=== PATIENT | female | born 1985 | race African-American/Black ===

== ENCOUNTER 2016-08-01 10:20 | Emergency (ER) | payer MEDICAID ==
[~2016-08-01] VITALS: Ht 167.6 cm; Wt 97.5 kg
[2016-08-01 10:27] VITALS: BP 119/71; PULSE 86; RESP 16; TEMP 97.3; O2SAT 98
--- NOTE | 2016-08-01 10:37 | NUR ---
Patient to ER bed 2 to gown for evaluation. Side rails up. Report given to Michael SWAIN.
--- NOTE | 2016-08-01 10:38 | NUR ---
ER at bedside examining patient.
--- NOTE | 2016-08-01 10:41 | NUR ---
Pt presents to Ed c/o bilateral eye irrigation s/p dinner last evening. Pt reports scratchiness to eyes while blinking and exudate this AM.
--- NOTE | 2016-08-01 10:55 | NUR ---
eye exam done by
[2016-08-01 11:25] VITALS: BP 119/71; PULSE 86; RESP 16; TEMP 97.3; O2SAT 98
--- NOTE | 2016-08-01 11:25 | NUR ---
Patient given written and verbal discharge instructions and verbalizes understanding. ER MD discussed with patient the results and treatment provided. Given copies of tests performed in ER. Patient in stable condition. ID arm band removed. IV catheter removed intact and dressing applied, no active bleeding. Rx of ocufox,clindamycin given. Patient educated on pain management and to follow up with PMD. Pain Scale 2. Opportunity for questions provided and answered.
== END 2016-08-01 11:25 | disposition home or self-care (01) ==
LOC: SED 10:20
DX: B30.9 Viral conjunctivitis, unspecified (principal); J45.909 Unspecified asthma, uncomplicated; Z88.0 Allergy status to penicillin; Z88.1 Allergy status to other antibiotic agents; Z91.018 Allergy to other foods
CPT/HCPCS: 99283

== ENCOUNTER 2016-08-02 17:51 | Emergency (ER) | payer MEDICAID ==
[~2016-08-02] VITALS: Ht 167.6 cm; Wt 97.5 kg
[2016-08-02 18:00] VITALS: BP_SYST 129
[2016-08-02 19:28] VITALS: BP_SYST 129
== END 2016-08-02 19:28 | disposition home or self-care (01) ==
LOC: SED 17:51
DX: B30.9 Viral conjunctivitis, unspecified (principal); J45.909 Unspecified asthma, uncomplicated; Z88.0 Allergy status to penicillin; Z88.1 Allergy status to other antibiotic agents; Z91.018 Allergy to other foods
CPT/HCPCS: 99283

== ENCOUNTER 2017-01-03 22:01 | Emergency (ER) | payer OTHER ==
[~2017-01-03] VITALS: Ht 167.6 cm; Wt 95.3 kg
[2017-01-03 22:08] VITALS: BP_SYST 157
[2017-01-03] MEDS ORDERED: DIPHENHYDRAMINE HCL 25 MG CAPSULE PO ONE (22:30)
[2017-01-03 22:37] VITALS: BP_SYST 157
== END 2017-01-03 22:31 | disposition home or self-care (01) ==
LOC: SED 22:01
DX: L03.116 Cellulitis of left lower limb (principal); J45.909 Unspecified asthma, uncomplicated; Z86.73 Personal history of transient ischemic attack (TIA), and cerebral infarction without residual deficits; Z88.0 Allergy status to penicillin; Z88.1 Allergy status to other antibiotic agents
CPT/HCPCS: 99283; Q0163

== ENCOUNTER 2017-02-08 08:47 | Emergency (ER) | payer OTHER ==
[~2017-02-08] VITALS: Ht 167.6 cm; Wt 97.5 kg
[2017-02-08 09:00] VITALS: BP_SYST 132
[2017-02-08 09:34] LABS: BASOPHILS % (AUTO) 0.5 % (0.0-2.0); EOSINOPHILS # (AUTO) 0.1 K/uL (0.0-0.4); EOSINOPHILS % (AUTO) 2.3 % (0.0-4.0); HEMATOCRIT 38.7 % (36-48); HEMOGLOBIN 12.4 g/dL (12.0-16.0); LYMPHOCYTES # (AUTO) 1.8 K/uL (1.0-5.5); LYMPHOCYTES % (AUTO) 33.6 % (20.5-51.5); MEAN CORPUSCULAR HEMOGLOBIN 27 pg (27-31); MEAN CORPUSCULAR HGB CONC 32 % (32-36); MEAN CORPUSCULAR VOLUME 84 fL (79.0-98.0); MONOCYTES # (AUTO) 0.2 K/uL (0.0-1.0); MONOCYTES % (AUTO) 4.5 % (1.7-9.3); NEUTROPHILS # (AUTO) 3.3 K/uL (1.8-7.7); NEUTROPHILS % (AUTO) 59.1 % (40.0-70.0); PLATELET COUNT (AUTO) 151 K/uL (130-430); RED BLOOD CELL COUNT(AUTO) 4.63 MIL/uL (4.2-6.2); RED CELL DISTRIBUTION WIDTH 13.7 % (9.0-15.0); WHITE BLOOD COUNT (AUTO) 5.4 K/uL (4.8-10.8)
[2017-02-08 09:41] LABS: PROTHROMBIN TIME 10.8 SECS (9.5-12.5)
[2017-02-08 09:44] LABS: CALCIUM 9.7 mg/dL (8.4-11.0); CREATININE 0.73 mg/dL (0.55-1.30); POTASSIUM 3.7 mmol/L (3.5-5.1)
[2017-02-08] MEDS ORDERED: ACETAMINOPHEN 500 MG TABLET PO ONE (09:45)
[2017-02-08 11:52] VITALS: BP_SYST 124
== END 2017-02-08 11:52 | disposition home or self-care (01) ==
LOC: SED 08:47
DX: O9A.211 Injury, poisoning and certain other consequences of external causes complicating pregnancy, first trimester (principal); M25.511 Pain in right shoulder; R51 Headache; R10.9 Unspecified abdominal pain; J45.909 Unspecified asthma, uncomplicated; Z88.0 Allergy status to penicillin; Z86.73 Personal history of transient ischemic attack (TIA), and cerebral infarction without residual deficits; Z88.1 Allergy status to other antibiotic agents; Z91.018 Allergy to other foods; Z3A.01 Less than 8 weeks gestation of pregnancy; W10.8XXA Fall (on) (from) other stairs and steps, initial encounter; Y93.89 Activity, other specified; Y92.89 Other specified places as the place of occurrence of the external cause; Y99.8 Other external cause status
CPT/HCPCS: 36415; 71020-TC; 72040-TC; 73030; 73060-TC; 73090; 76801; 76817; 80048; 84702-TC; 85025; 85610-TC; 85730-TC; 86900; 86901; 99285

== ENCOUNTER 2017-02-26 19:47 | Emergency (ER) | payer OTHER ==
[~2017-02-26] VITALS: Ht 167.6 cm; Wt 97.5 kg
[2017-02-26 19:47] VITALS: BP_SYST 152
[2017-02-26] MEDS ORDERED: DIPHENHYDRAMINE INJ 50 MG/ML VIAL IM ONE (20:15)
[2017-02-26] MEDS ORDERED: METOCLOPRAMIDE HCL 10 MG TABLET PO ONE (20:30)
[2017-02-26 20:39] VITALS: BP_SYST 129
== END 2017-02-26 21:25 | disposition home or self-care (01) ==
LOC: SED 19:47
DX: O26.891 Other specified pregnancy related conditions, first trimester (principal); L50.9 Urticaria, unspecified; J45.909 Unspecified asthma, uncomplicated; Z3A.12 12 weeks gestation of pregnancy; Z88.0 Allergy status to penicillin; Z86.73 Personal history of transient ischemic attack (TIA), and cerebral infarction without residual deficits; Z88.1 Allergy status to other antibiotic agents; Z91.018 Allergy to other foods
CPT/HCPCS: 76815; 96372; 99285; J1200; J8597

== ENCOUNTER 2017-02-27 23:23 | Emergency (ER) | payer OTHER ==
[~2017-02-27] VITALS: Ht 162.6 cm; Wt 97.5 kg
[2017-02-27 23:23] VITALS: BP_SYST 128
[2017-02-27] MEDS ORDERED: DIPHENHYDRAMINE INJ 50 MG/ML VIAL IM ONE (23:45)
[2017-02-28 00:44] LABS: EOSINOPHILS % (AUTO) 0.6 % (0.0-4.0); MEAN CORPUSCULAR HEMOGLOBIN 27 pg (27-31); MONOCYTES # (AUTO) 0.4 K/uL (0.0-1.0); NEUTROPHILS # (AUTO) 4.3 K/uL (1.8-7.7); PLATELET COUNT (AUTO) 153 K/uL (130-430)
[2017-02-28 00:48] LABS: LYMPHOCYTES # (AUTO) 1.9 K/uL (1.0-5.5)
[2017-02-28 00:51] LABS: BASOPHILS % (AUTO) 0.4 % (0.0-2.0); CALCIUM 9.3 mg/dL (8.4-11.0); CREATININE 0.59 mg/dL (0.55-1.30); HEMATOCRIT 37.3 % (36-48); HEMOGLOBIN 12.1 g/dL (12.0-16.0); LYMPHOCYTES % (AUTO) 29.3 % (20.5-51.5); MEAN CORPUSCULAR HGB CONC 33 % (32-36); MEAN CORPUSCULAR VOLUME 84 fL (79.0-98.0); MONOCYTES % (AUTO) 5.4 % (1.7-9.3); NEUTROPHILS % (AUTO) 64.3 % (40.0-70.0); POTASSIUM 3.3 mmol/L (3.5-5.1); RED BLOOD CELL COUNT(AUTO) 4.46 MIL/uL (4.2-6.2); WHITE BLOOD COUNT (AUTO) 6.6 K/uL (4.8-10.8)
[2017-02-28 00:53] LABS: INR 1.1 (0.8-1.2); PROTHROMBIN TIME 10.7 SECS (9.5-12.5)
[2017-02-28 00:55] LABS: ALBUMIN 3.2 g/dL (3.4-4.8); TOTAL BILIRUBIN 0.3 mg/dL (0.0-1.0)
[2017-02-28 02:11] VITALS: BP_SYST 120
== END 2017-02-28 02:11 | disposition home or self-care (01) ==
LOC: SED 23:23
DX: O26.891 Other specified pregnancy related conditions, first trimester (principal); L50.9 Urticaria, unspecified; Z88.1 Allergy status to other antibiotic agents; Z91.018 Allergy to other foods; Z86.73 Personal history of transient ischemic attack (TIA), and cerebral infarction without residual deficits; Z3A.09 9 weeks gestation of pregnancy
CPT/HCPCS: 36415; 80053; 85025; 85610; 85730; 96372; 99285; J1200

== ENCOUNTER 2017-06-20 09:52 | Emergency (ER) | payer OTHER ==
[~2017-06-20] VITALS: Ht 167.6 cm; Wt 97.1 kg
--- NOTE | 2017-06-20 09:55 | NUR ---
Patient to ER bed 8 to gown for evaluation. Side rails up. Report given to Jose SWAIN.
--- NOTE | 2017-06-20 09:58 | NUR ---
ER at bedside examining patient.
[2017-06-20 09:59] VITALS: BP_SYST 159
--- NOTE | 2017-06-20 10:00 | NUR ---
ER Dr. Saldivar at bedside examining patient.
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
--- NOTE | 2017-06-20 10:29 | NUR ---
Pita dotson in ED - 06/20/17 at 1030 by [email or web address] Radiology at bedside for xray.
--- NOTE | 2017-06-20 10:29 | NUR ---
Patient transported to radiology via wheelchair, accompanied by rad staff.
--- NOTE | 2017-06-20 11:15 | NUR ---
Dr. Saldivar at bedside updating pt on diagnostic results.
--- NOTE | 2017-06-20 11:17 | NUR ---
Soft cervical collar applied to pt. Pt tolerated well & states that it is comfortably placed.
[2017-06-20 11:25] VITALS: BP_SYST 117
--- NOTE | 2017-06-20 11:25 | NUR ---
Patient given written and verbal discharge instructions and verbalizes understanding. ER MD discussed with patient the results and treatment provided. Patient in stable condition. ID arm band removed. No Rx given. Patient educated on pain management and to follow up with PMD. Pain Scale 8/10 but advised to take otc pain medications prn for pain at home, as well as non-pharm pain interventions such as ice and heat pack to neck. Opportunity for questions provided and answered.
== END 2017-06-20 11:25 | disposition home or self-care (01) ==
LOC: SED 09:52
DX: O9A.212 Injury, poisoning and certain other consequences of external causes complicating pregnancy, second trimester (principal); S13.4XXA Sprain of ligaments of cervical spine, initial encounter; J45.909 Unspecified asthma, uncomplicated; Z86.73 Personal history of transient ischemic attack (TIA), and cerebral infarction without residual deficits; Z88.0 Allergy status to penicillin; Z88.8 Allergy status to other drugs, medicaments and biological substances; V89.2XXA Person injured in unspecified motor-vehicle accident, traffic, initial encounter; Y93.89 Activity, other specified; Y92.89 Other specified places as the place of occurrence of the external cause; Y99.8 Other external cause status
CPT/HCPCS: 72040-TC; 99284

== ENCOUNTER 2017-07-23 19:47 | Observation (INO) | payer OTHER ==
[~2017-07-23] VITALS: Ht 167.6 cm; Wt 97.5 kg
== END 2017-07-23 20:40 | disposition home or self-care (01) ==
LOC: SPU 19:47
PROVIDERS: ADMIT Specialist; ATTEND Specialist
DX: O26.893 Other specified pregnancy related conditions, third trimester (principal); N89.8 Other specified noninflammatory disorders of vagina; Z3A.30 30 weeks gestation of pregnancy
CPT/HCPCS: G0378

== ENCOUNTER 2018-10-19 19:26 | Emergency (ER) | payer OTHER ==
[~2018-10-19] VITALS: Ht 167.6 cm; Wt 122.5 kg
[2018-10-19 20:00] VITALS: BP_SYST 150
[2018-10-19] MEDS ORDERED: TOP25 PO (20:05)
[2018-10-19] MEDS ORDERED: LEVE500T9 (20:05)
[2018-10-19] MEDS ORDERED: IMI50 PO (20:06)
[2018-10-19] MEDS ORDERED: NORT10CA PO (20:06)
[2018-10-19] MEDS ORDERED: LIDOCAINE 1% 10 MG/ML, 20 ML MDV INJ ONE (21:45)
[2018-10-19] MEDS ORDERED: IBUPROFEN 800 MG TABLET PO ONE (22:15)
[2018-10-19] MEDS ORDERED: SULFAMETHOXAZOLE/TRIMETHOPR DS 1 TABLET PO ONE (22:15)
[2018-10-19] MEDS ORDERED: MORPHINE 2 MG/ML INJ. SYRINGE IM ONE (23:00)
[2018-10-19] MEDS ORDERED: ONDANSETRON 4 MG ODT TAB PO ONE (23:00)
[2018-10-19 23:30] VITALS: BP_SYST 150
== END 2018-10-19 23:30 | disposition home or self-care (01) ==
LOC: SED 19:26
DX: L05.01 Pilonidal cyst with abscess (principal); J45.909 Unspecified asthma, uncomplicated; Z86.73 Personal history of transient ischemic attack (TIA), and cerebral infarction without residual deficits; Z79.899 Other long term (current) drug therapy; Z88.0 Allergy status to penicillin; Z88.1 Allergy status to other antibiotic agents; Z91.010 Allergy to peanuts; Z91.018 Allergy to other foods
CPT/HCPCS: 10080; 96372; 99284; J2001; J2270; Q0162; 99283

== ENCOUNTER 2019-03-30 16:17 | Emergency (ER) | payer OTHER ==
[~2019-03-30] VITALS: Ht 170.2 cm; Wt 121.6 kg
[~2019-03-30 16:17] MED LIST: IMI50 PO; LEVE500T9; NORT10CA PO; TOP25 PO
[2019-03-30 16:30] VITALS: BP_SYST 124
[2019-03-30 17:08] LABS: BASOPHILS % (AUTO) 0.5 % (0.0-2.0); EOSINOPHILS # (AUTO) 0.2 K/uL (0.0-0.4); EOSINOPHILS % (AUTO) 3.1 % (0.0-4.0); HEMATOCRIT 34.7 % (36-48); HEMOGLOBIN 11.3 g/dL (12.0-16.0); LYMPHOCYTES # (AUTO) 2.2 K/uL (1.0-5.5); LYMPHOCYTES % (AUTO) 39.7 % (20.5-51.5); MEAN CORPUSCULAR HEMOGLOBIN 27 pg (27-31); MEAN CORPUSCULAR HGB CONC 33 % (32-36); MEAN CORPUSCULAR VOLUME 81 fL (79.0-98.0); MONOCYTES # (AUTO) 0.3 K/uL (0.0-1.0); MONOCYTES % (AUTO) 5.7 % (1.7-9.3); NEUTROPHILS # (AUTO) 2.8 K/uL (1.8-7.7); PLATELET COUNT (AUTO) 172 K/uL (130-430); RED BLOOD CELL COUNT(AUTO) 4.27 MIL/uL (4.2-6.2); RED CELL DISTRIBUTION WIDTH 15.4 % (9.0-15.0); WHITE BLOOD COUNT (AUTO) 5.5 K/uL (4.8-10.8)
[2019-03-30 17:18] LABS: CALCIUM 8.7 mg/dL (8.4-11.0); CREATININE 0.97 mg/dL (0.55-1.30); POTASSIUM 3.5 mmol/L (3.5-5.1)
[2019-03-30 17:23] LABS: ALBUMIN 3.6 g/dL (3.4-4.8); C-REACTIVE PROTEIN QUANT 1.4 mg/dL (0-0.5); TOTAL BILIRUBIN 0.2 mg/dL (0.0-1.0)
[2019-03-30 20:15] VITALS: BP_SYST 124
== END 2019-03-30 20:15 | disposition home or self-care (01) ==
LOC: SED 16:17
DX: L30.9 Dermatitis, unspecified (principal); J45.909 Unspecified asthma, uncomplicated; Z88.0 Allergy status to penicillin; Z88.1 Allergy status to other antibiotic agents; Z91.018 Allergy to other foods; Z79.899 Other long term (current) drug therapy
CPT/HCPCS: 36415; 80053; 85025; 86140; 99283

== ENCOUNTER 2019-06-02 13:12 | Emergency (ER) | payer OTHER ==
[~2019-06-02] VITALS: Ht 170.2 cm; Wt 117.0 kg
[2019-06-02 14:20] VITALS: BP_SYST 131
--- NOTE | 2019-06-02 14:29 | NUR ---
Patient IN TRIAGE for evaluation.
--- NOTE | 2019-06-02 14:30 | NUR ---
ER SET UP MACHINIST LOYOLA IN TRIAGE examining patient.
--- NOTE | 2019-06-02 14:31 | NUR ---
PT C/O BILATERAL HAND ECZEMA EXACERBATION.
[2019-06-02 14:32] VITALS: BP_SYST 131
--- NOTE | 2019-06-02 14:32 | NUR ---
Patient given written and verbal discharge instructions and verbalizes understanding. ER MD discussed with patient the results and treatment provided. Patient in stable condition. ID arm band removed. Rx of TRIAMCINOLONE,PREDNISONE,DERMATOP given. Patient educated on pain management and to follow up with PMD. Pain Scale 0. Opportunity for questions provided and answered. Medication side effect fact sheet provided.
== END 2019-06-02 14:32 | disposition home or self-care (01) ==
LOC: SED 13:12
DX: L20.9 Atopic dermatitis, unspecified (principal); R03.0 Elevated blood-pressure reading, without diagnosis of hypertension; J45.909 Unspecified asthma, uncomplicated; Z88.0 Allergy status to penicillin; Z88.1 Allergy status to other antibiotic agents; Z91.018 Allergy to other foods; Z79.899 Other long term (current) drug therapy
CPT/HCPCS: 99283

== ENCOUNTER 2020-01-03 16:32 | Emergency (ER) | payer OTHER ==
[~2020-01-03] VITALS: Ht 167.6 cm; Wt 132.0 kg
[2020-01-03 16:54] VITALS: BP_SYST 149
--- NOTE | 2020-01-03 17:07 | NUR ---
pt to bed 2. alert and oriented.
--- NOTE | 2020-01-03 17:12 | NUR ---
ER at bedside examining patient.
--- NOTE | 2020-01-03 17:30 | NUR ---
Dr. Blankneship at the bedside repairing pt's lac
[2020-01-03 17:35] VITALS: BP_SYST 149
--- NOTE | 2020-01-03 17:45 | NUR ---
Patient given written and verbal discharge instructions and verbalizes understanding. ER MD discussed with patient the results and treatment provided. Patient in stable condition. ID arm band removed. Patient educated on pain management and to follow up with PMD. Pain Scale 0/10. Opportunity for questions provided and answered. Medication side effect fact sheet provided.
== END 2020-01-03 17:45 | disposition home or self-care (01) ==
LOC: SED 16:32
DX: S61.011A Laceration without foreign body of right thumb without damage to nail, initial encounter (principal); J45.909 Unspecified asthma, uncomplicated; L30.9 Dermatitis, unspecified; Z86.79 Personal history of other diseases of the circulatory system; Z79.899 Other long term (current) drug therapy; Z88.0 Allergy status to penicillin; Z88.1 Allergy status to other antibiotic agents; Z91.018 Allergy to other foods; W26.8XXA Contact with other sharp object(s), not elsewhere classified, initial encounter; Y93.89 Activity, other specified; Y92.89 Other specified places as the place of occurrence of the external cause; Y99.8 Other external cause status
CPT/HCPCS: 99282

== ENCOUNTER 2020-03-16 20:06 | Emergency (ER) | payer OTHER ==
[~2020-03-16] VITALS: Ht 167.6 cm; Wt 119.3 kg
[2020-03-16 20:27] VITALS: BP_SYST 131
[2020-03-16 22:13] VITALS: BP_SYST 131
== END 2020-03-16 22:13 | disposition home or self-care (01) ==
LOC: SED 20:06
DX: S39.012A Strain of muscle, fascia and tendon of lower back, initial encounter (principal); J45.909 Unspecified asthma, uncomplicated; L30.9 Dermatitis, unspecified; Z86.79 Personal history of other diseases of the circulatory system; Z79.899 Other long term (current) drug therapy; Z88.0 Allergy status to penicillin; Z88.1 Allergy status to other antibiotic agents; Z91.018 Allergy to other foods; V49.59XA Passenger injured in collision with other motor vehicles in traffic accident, initial encounter; Y93.89 Activity, other specified; Y92.413 State road as the place of occurrence of the external cause; Y99.8 Other external cause status
CPT/HCPCS: 99282

== ENCOUNTER 2020-09-22 21:06 | Emergency (ER) | payer OTHER ==
[~2020-09-22] VITALS: Ht 167.6 cm; Wt 114.8 kg
[2020-09-22 21:15] VITALS: BP_SYST 145
[2020-09-22] MEDS ORDERED: ACETAMINOPHEN 325 MG TABLET PO ONE (21:45)
[2020-09-22 22:40] VITALS: BP_SYST 99
[2020-09-22] MEDS ORDERED: IBUP-1970 PO (23:31)
[2020-09-23] MEDS ORDERED: ATROPINE SULFATE 1 MG/10 ML SYRINGE IVP ONE (11:12)
== END 2020-09-22 23:45 | disposition home or self-care (01) ==
LOC: SED 21:06
DX: S63.601A Unspecified sprain of right thumb, initial encounter (principal); S93.402A Sprain of unspecified ligament of left ankle, initial encounter; S90.32XA Contusion of left foot, initial encounter; J45.909 Unspecified asthma, uncomplicated; Z88.0 Allergy status to penicillin; Z88.1 Allergy status to other antibiotic agents; Z91.018 Allergy to other foods; Z79.899 Other long term (current) drug therapy; W18.39XA Other fall on same level, initial encounter; Y93.89 Activity, other specified; Y92.89 Other specified places as the place of occurrence of the external cause; Y99.8 Other external cause status
CPT/HCPCS: 73590-TC; 99284; J0461

== ENCOUNTER 2021-07-12 12:05 | Emergency (ER) | payer OTHER ==
[~2021-07-12] VITALS: Ht 167.6 cm; Wt 117.9 kg
[~2021-07-12 12:05] MED LIST changes: +IBUP-1970 PO
--- NOTE | 2021-07-12 12:05 | NUR ---
roomed in bed 7. to see
[2021-07-12 12:12] VITALS: BP_SYST 138
[2021-07-12] MEDS ORDERED: ONDANSETRON HCL 4 MG/2 ML VIAL IVP ONE (13:30)
[2021-07-12] MEDS ORDERED: KETOROLAC TROMETHAMINE 30 MG VIAL IVP ONE (13:30)
[2021-07-12] MEDS ORDERED: NACL 0.9% 1,000 ML IV ONE (13:30)
[2021-07-12 14:31] LABS: BASOPHILS % (AUTO) 0.5 % (0.0-2.0); EOSINOPHILS # (AUTO) 0.1 K/uL (0.0-0.4); EOSINOPHILS % (AUTO) 2.3 % (0.0-4.0); HEMATOCRIT 33.9 % (36-48); HEMOGLOBIN 10.9 g/dL (12.0-16.0); LYMPHOCYTES # (AUTO) 2.3 K/uL (1.0-5.5); LYMPHOCYTES % (AUTO) 46.7 % (20.5-51.5); MEAN CORPUSCULAR HEMOGLOBIN 26 pg (27-31); MEAN CORPUSCULAR HGB CONC 32 % (32-36); MEAN CORPUSCULAR VOLUME 81 fL (79.0-98.0); MONOCYTES # (AUTO) 0.3 K/uL (0.0-1.0); NEUTROPHILS # (AUTO) 2.1 K/uL (1.8-7.7); NEUTROPHILS % (AUTO) 43.5 % (40.0-70.0); PLATELET COUNT (AUTO) 152 K/uL (130-430); RED CELL DISTRIBUTION WIDTH 14.9 % (9.0-15.0); WHITE BLOOD COUNT (AUTO) 4.8 K/uL (4.8-10.8)
[2021-07-12 14:37] LABS: ANION GAP 8 (5-15); CALCIUM 7.8 mg/dL (8.4-11.0); CHLORIDE 103 mmol/L (98-107); GLUCOSE 83 mg/dL (70-99); POTASSIUM 3.6 mmol/L (3.5-5.1); SODIUM SERUM 139 mmol/L (136-145); UREA NITROGEN, BLOOD 11 mg/dL (8-21)
[2021-07-12 14:38] LABS: GFR AFRICAN AMERICAN 122 mL/min (>90)
[2021-07-12 14:41] LABS: ALANINE AMINOTRANSFERASE 19 U/L (12-78); ALBUMIN 3.2 g/dL (3.4-4.8); ASPARTATE AMINOTRANSFERASE 11 U/L (10-37); LIPASE 56 U/L (73-393); TOTAL BILIRUBIN < 0.1 mg/dL (0.0-1.0)
[2021-07-12] MEDS ORDERED: ONDA-8 TL (14:56)
[2021-07-12 15:04] VITALS: BP_SYST 129
--- NOTE | 2021-07-12 15:05 | NUR ---
Patient given written and verbal discharge instructions and verbalizes understanding. DORETHA rivas MD discussed with patient the results and treatment provided. Patient in stable condition. ID arm band removed. IV catheter removed intact and dressing applied, no active bleeding. Rx of zofran given. Patient educated on pain management and to follow up with PMD. Pain Scale 0. Opportunity for questions provided and answered. Medication side effect fact sheet provided.
== END 2021-07-12 15:04 | disposition home or self-care (01) ==
LOC: SED 12:05
DX: R10.33 Periumbilical pain (principal); R11.2 Nausea with vomiting, unspecified; J45.909 Unspecified asthma, uncomplicated; Z88.0 Allergy status to penicillin; Z88.1 Allergy status to other antibiotic agents; Z91.018 Allergy to other foods; Z79.899 Other long term (current) drug therapy
CPT/HCPCS: 36415; 80053; 81002; 83690; 85025; 96361; 96374; 96375; 99284; J1885; J2405; J7030

== ENCOUNTER 2021-08-05 23:33 | Emergency (ER) | payer OTHER ==
[~2021-08-05 23:33] MED LIST changes: +ONDA-8 TL
--- NOTE | 2021-08-06 00:15 | NUR ---
Patient left without being seen. No further treatment provided. ER MD aware
== END 2021-08-06 00:15 | disposition left against medical advice (07) ==
LOC: SED 23:33
DX: S31.801A Laceration without foreign body of unspecified buttock, initial encounter (principal); Z53.21 Procedure and treatment not carried out due to patient leaving prior to being seen by health care provider

== ENCOUNTER 2022-07-19 20:56 | Emergency (ER) | payer OTHER ==
[~2022-07-19] VITALS: Ht 170.2 cm; Wt 132.9 kg
[2022-07-19 21:16] VITALS: BP_SYST 143
[2022-07-19] MEDS ORDERED: IBUP-1969 PO (22:01)
[2022-07-19] MEDS: KETOROLAC TROMETHAMINE 30 MG VIAL IM ONE (22:46)
[2022-07-19 22:47] VITALS: BP_SYST 126
== END 2022-07-19 22:47 | disposition home or self-care (01) ==
LOC: SED 20:56
DX: S93.402A Sprain of unspecified ligament of left ankle, initial encounter (principal); J45.909 Unspecified asthma, uncomplicated; Z88.0 Allergy status to penicillin; Z88.1 Allergy status to other antibiotic agents; Z91.018 Allergy to other foods; Z79.899 Other long term (current) drug therapy; W17.2XXA Fall into hole, initial encounter; Y93.89 Activity, other specified; Y92.89 Other specified places as the place of occurrence of the external cause; Y99.8 Other external cause status
CPT/HCPCS: 99283; 73610; 96372; J1885

== ENCOUNTER 2023-10-18 08:52 | Emergency (ER) | payer OTHER ==
[~2023-10-18] VITALS: Ht 170.2 cm; Wt 133.8 kg
[~2023-10-18 08:52] MED LIST changes: +IBUP-1969 PO
[2023-10-18 08:58] VITALS: BP_SYST 143; PULSE 80; RESP 16; TEMP 98.5; O2SAT 98
[2023-10-18] MEDS ORDERED: POLYEYEO LEFT EYE (09:33)
[2023-10-18 09:42] VITALS: BP_SYST 143; PULSE 80; RESP 16; TEMP 98.5; O2SAT 98
== END 2023-10-18 09:41 | disposition home or self-care (01) ==
LOC: SED 08:52
DX: H00.016 Hordeolum externum left eye, unspecified eyelid (principal); J45.909 Unspecified asthma, uncomplicated; Z88.0 Allergy status to penicillin; Z88.1 Allergy status to other antibiotic agents; Z91.018 Allergy to other foods; Z79.899 Other long term (current) drug therapy; Z79.2 Long term (current) use of antibiotics
CPT/HCPCS: 99283